=== PATIENT | male | born 1960 | race Two or more races ===

== ENCOUNTER → 2021-01-05 | Day surgery (SDC) | payer OTHER ==
[~2021-01-05] MED LIST: ASPIRIN81 MG PO; CARBIDOPA-LEVO1 EACH PO; CARVEDILOL3.125 MG PO; CRESTOR20 MG PO; MAGNESIUM OXID400 MG PO; MULTI-VITAMIN1 EACH PO; MYCOPHENOLATE250 MG PO; NEURONTIN100 MG PO; OR PHACO EYE KIT ONE; PRAVASTATIN SOD40 MG PO; PREOP PHACO EYE KIT ONE; TACROLIMUS0.5 MG PO; TRIHEXYPHENIDYL2 MG PO
[2021-01-05 16:40] VITALS: BP 132/84
== END | disposition home or self-care (01) ==
LOC: OR 14:47
PROVIDERS: ATTEND Ophthalmology
DX: H25.11 Age-related nuclear cataract, right eye (principal); G20 Parkinson's disease; Z79.82 Long term (current) use of aspirin; Z94.1 Heart transplant status

== ENCOUNTER → 2021-01-26 | Day surgery (SDC) | payer OTHER ==
[~2021-01-26] MED LIST changes: +FENTANYL CITRATE/PF 100MCG/2 ML INJ ONE; +MIDAZOLAM HCL 2 MG/2 ML VIAL ONE
[2021-01-26 14:56] VITALS: BP 128/86
== END | disposition home or self-care (01) ==
LOC: OR 12:54
PROVIDERS: ATTEND Ophthalmology
DX: H25.12 Age-related nuclear cataract, left eye (principal); G20 Parkinson's disease; I25.10 Atherosclerotic heart disease of native coronary artery without angina pectoris; I25.2 Old myocardial infarction; I11.0 Hypertensive heart disease with heart failure; I50.9 Heart failure, unspecified; Z94.1 Heart transplant status; K21.9 Gastro-esophageal reflux disease without esophagitis; Z79.82 Long term (current) use of aspirin
CPT/HCPCS: 66984; J2250; J3010; V2632